=== PATIENT | male | born 1935 | race Caucasian/White ===

== ENCOUNTER → 2016-08-16 | Outpatient (CLI) | payer MEDICARE, BC ==
[2016-08-16 08:08] LABS: Blood Urea Nitrogen 22 mg/dL (9-20); Non-African American GFR(MDRD) >60 (>60 ml/min/1.73 sqM)
--- NOTE | 2016-08-16 10:51 | CT ---
EXAMINATION TYPE: CT ChestAbdPelvis w con DATE OF EXAM: 08/16/2016 9:28 AM INDICATION: Follow up to renal CA COMPARISON: 06/14/2016 CT chest abdomen pelvis CT DLP: 2409 mGycm CONTRAST: Performed with Oral Contrast and with IV Contrast, patient injected with 100 mL of Omnipaque 300. TECHNIQUE: Axial images at 5 mm thick sections. Reconstructed images in the coronal plane. Delayed images through the kidneys. FINDINGS: CT CHEST: Portion of the thyroid visualized is normal. No suspicious lung nodules or focal infiltrates are present. Emphysematous changes are present within the lung apices, present previously. No enlarged mediastinal or hilar adenopathy is evident. The ascending aorta diameter at the level of the main pulmonary artery is 3.4 cm. The main pulmonary artery diameter at the bifurcation is 2.7 cm. Some coronary artery calcification is likely present. CT ABDOMEN: Liver: There are several hypodensities within the liver. These may be small hepatic cysts. This would include a right lobe of 0.9 subcortical cyst. Series 3 image 58. A medial right lobe liver lesion 1 measuring 1.2 cm. Series 3 image 57. Right lobe liver lesions near the dome of the diaphragm measurin g 0.8-0.6 cm. Series 3 image 52. Additional punctate hypodensities are present. Findings appear to be present previously and are more apparent on these postcontrast images. Spleen: Normal Pancreas: Normal Adrenal glands: The adrenal glands are normal. Gallbladder: Normal Kidneys: No masses are evident. No hydronephrosis is present. Multiple cysts are present on the amy ateral kidneys. This includes a 4.4 cm cyst on the posterior lateral left mid kidney measuring -11 Ho unsfield units. Nonobstructing 0.5 cm calcification is within the dilated calyx adjacent. A large 2.1 x 1.4 cm calcifications in the left renal pelvis. Additional 0.6 and 0.5 cm inferior left renal ston es are present. There is a intermediate appearing signal within the inferior anterior medial left renal cyst. This me asures only 17 Hounsfield units however. This measures 8 cm in size was present previously. This appe ars more hypodense on the current exam. A right renal cyst at the posterior medial right kidney measu res 4.7 cm and -9 Hounsfield units. A superior pole renal lesion measures 3.7 cm in -12 Hounsfield un its. Delayed images were obtained through the kidneys. Aorta: Vascular calcification is within the aorta. Inferior vena cava: Normal. CT PELVIS: Diverticulosis is within the sigmoid colon. Fecal debris is at the rectum. Loops of bowel distended w ith oral contrast appear unremarkable. There are some loops of bowel lacking oral contrast limiting t heir evaluation. Appendix: Normal as visualized. Urinary bladder: Normal. Genitourinary structures: Prostate appears normal, calcification is present. Osseous structures: There is a right hip pin. Degenerative facets are within the lumbar spine. There is a lytic area within the L3 vertebral body measuring 2.6 cm. This was present previously. There may be a lytic area within the T11 vertebral body posteriorly. This was present previously. IMPRESSIONS: 1. Lesion on the inferior anterior left kidney appears more hypodense and somewhat more fluidlike austin n the previous solid appearance. However, the structure size is similar to previous. 2. Possible lytic areas within the lumbar spine and lower thoracic spine. 3. Renal cysts and suspected hepatic cysts. 4. Left renal stones with mild left hydronephrosis
--- NOTE | 2016-08-16 13:13 | NM ---
EXAMINATION TYPE: NM bone scan whole body DATE OF EXAM: 08/16/2016 12:22 PM COMPARISON: 06/14/1960 HISTORY: Renal cell carcinoma Delayed whole-body scanning was performed following the injection of 26.7 mCi Tc 99m MDP. Images acq uired 3 hours post injection. FINDINGS: New areas of increased uptake: Left acetabular region which may be degenerative in nature although m etastatic disease is not excluded. The left first rib demonstrates focal increased radiotracer activi ty. Improved areas of increased uptake: Previously noted areas of increased uptake about the right femur have not improved significantly with only mild increased uptake seen at the right intertrochanteric r egion and right mid femur. There is also resolution of increased uptake at the L3 vertebral segment. Stable areas of increased uptake: Stable increased uptake and degenerative type uptake is seen about the shoulders, sternoclavicular joints, mid thoracic spine, knees and ankles. Progressive areas of increased uptake: None Progressive hydronephrosis left kidney. IMPRESSION: 1. New areas of increased uptake involving the left acetabular region could be degenerative in nature however metastatic disease is not excluded. Radiographic correlation recommended. 2. New area of focal increased uptake involving the left first rib. Radiographic correlation advised. 3. Continued and progressive-appearing hydronephrosis left kidney.
== END | disposition home or self-care (01) ==
LOC: RADCTMAIN 07:32
PROVIDERS: ATTEND Internal Medicine Hematology & Oncology
DX: C64.9 Malignant neoplasm of unspecified kidney, except renal pelvis (principal); N28.1 Cyst of kidney, acquired; N13.2 Hydronephrosis with renal and ureteral calculous obstruction
CPT/HCPCS: 82565; 84520; 71260; 74177; 36415; 78306; A9503; Q9967

== ENCOUNTER → 2016-10-17 | Outpatient (CLI) | payer MEDICARE, BC ==
[2016-10-17 12:32] LABS: Blood Urea Nitrogen 20 mg/dL (9-20); Non-African American GFR(MDRD) >60 (>60 ml/min/1.73 sqM)
--- NOTE | 2016-10-17 14:48 | CT ---
EXAMINATION TYPE: CT ChestAbdPelvis w con DATE OF EXAM: 10/17/2016 2:22 PM COMPARISON: NONE HISTORY: Follow up renal cancer CT DLP: 2269 mGycm Automated exposure control for dose reduction was used. CONTRAST: CT scan of the chest, abdomen and pelvis is performed with Oral Contrast and with IV Contrast, patien t injected with 100 mL of Omnipaque 300. FINDINGS: CT CHEST: Portion of the thyroid visualized is normal. Emphysematous changes are present within the l colton apices, present previously. No enlarged mediastinal or hilar adenopathy is evident. The ascending aorta diameter at the level of the main pulmonary artery is 3.4 cm. The main pulmonary artery diamet er at the bifurcation is 2.7 cm. Some coronary artery calcification is likely present. There is a 5 m m nodule in the right upper lobe which is retrospectively stable. Vague density axial image 29 likely is postinflammatory measuring 3 mm. Additional area of nodularity seen within the right middle lobe axial image [address] ABDOMEN: Liver: There are several hypodensities within the liver. These may be small hepatic cysts. This would include a right lobe of 0.9 subcortical cyst. . A medial right lobe liver lesion 1 measuring 1.2 cm. . Right lobe liver lesions near the dome of the diaphragm measuring 0.8-0.6 cm. . Additional punctat e hypodensities are present. Findings appear to be present previously and are more apparent on these postcontrast images. Spleen: Normal Pancreas: Normal Adrenal glands: The adrenal glands are normal. Gallbladder: Normal Kidneys: No hydronephrosis is present. Multiple cysts are present on the bilateral kidneys. This incl udes a 4.4 cm cyst on the posterior lateral left mid kidney measuring - 11 Hounsfield units. Nonobstr ucting 0.5 cm calcification is within the dilated calyx adjacent. A large 2.1 x 1.4 cm calcifications in the left renal pelvis. Additional 0.6 and 0.5 cm inferior left renal stones are present. There is a intermediate appearing dense within the inferior anterior medial left renal lesion. Appears to con tain internal septations nodular thickening. There is mural nodularity and septal thickening suggesti ve of a complicated renal mass. Additional simple appearing bilateral renal cysts noted. Again appear s stable in size measuring approximately 8.6 x 7.9 cm. Aorta: Vascular calcification is within the aorta. Inferior vena cava: Normal. CT PELVIS: Diverticulosis is within the sigmoid colon. Fecal debris is at the rectum. Loops of bowel distended with oral contrast appear unremarkable. There is wall thickening involving the sigmoid colo n which may been the basis of chronic diverticulosis but should be correlated clinically and was perf ormed to direct visualization. Appendix: Normal as visualized. Urinary bladder: Normal. Genitourinary structures: Prostate appears normal, calcification is present. Other: Small fluid collection appears to be likely postsurgical adjacent to the right femoral region and stable from previous exam. Osseous structures: There is a right hip pin. Degenerative facets are within the lumbar spine. There is a lytic area within the L3 vertebral body measuring 2.6 cm. This was present previously. There may be a lytic area within the T11 vertebral body posteriorly. This was present previously. There is a l ytic area involving the posterior elements of L5. Lucent lesion involving L1 and T9 retrospectively s table. There is a remote fracture of the posterior margin left third rib correlates with previous bone scan abnormality.. IMPRESSIONS: 1. Lesion involving the inferior anterior left kidney appears complicated with areas measuring Hounsf ield unit of 40 units. Internal septations noted. Classify the lesion as a Bosniak 4 lesion. Appears to correspond to the suspicious lesion seen on the CAT scan of 04/20/2016. Lesion does appear to be st able in size from the previous exam. 2. Stable lytic lesion suggestive of metastases to the skeletal system. 3. Wall thickening sigmoid colon likely in the basis of chronic diverticulosis correlate clinically i f necessary with direct visualization. 4. There are three less than 5 mm pulmonary nodules which were likely present on the previous exam . They are too small to characterize but overall appear to be fairly stable from the previous. Contin ued follow-up exam recommended .
== END | disposition home or self-care (01) ==
LOC: RADCTMAIN 11:59
PROVIDERS: ATTEND Internal Medicine Hematology & Oncology
DX: Z03.89 Encounter for observation for other suspected diseases and conditions ruled out (principal); C64.2 Malignant neoplasm of left kidney, except renal pelvis; C79.51 Secondary malignant neoplasm of bone
CPT/HCPCS: 82565; 84520; 71260; 74177; 36415; Q9967

== ENCOUNTER → 2016-10-19 | Outpatient (CLI) | payer MEDICARE, BC ==
--- NOTE | 2016-10-19 15:36 | NM ---
EXAMINATION TYPE: NM bone scan whole body DATE OF EXAM: 10/19/2016 3:16 PM COMPARISON: Prior CT scan September, prior bone scan 16 August 2016 and prior bone scan HISTORY: Renal cell carcinoma Delayed whole-body scanning was performed following the injection of 25.1 mCi Tc 99m MDP. Images acq uired 3 hours post injection. FINDINGS: The focus of increased uptake in the posterior left third rib is again noted. Hydronephrosis of the l eft kidney causes increased accumulation of the radiopharmaceutical, there is an obstructing calculus within the left kidney as noted on CT. Uptake within the left foot, wrists, shoulders, and spine sara w a similar appearance, patient shows post right hip arthroplasty change with some mild increased sig nal proximally as on prior. Uptake in the region of the proximal right femur medially is again seen, this thought likely to be due to metastasis, the lytic L3 lesion does not show corresponding uptake o n the bone scan. Uptake in the acetabular roof on the left compatible with metastatic IMPRESSION: Similar findings to prior exam. Metastatic disease is similar. Hydronephrosis.
== END | disposition home or self-care (01) ==
LOC: RADNMMAIN 10:57
PROVIDERS: ATTEND Internal Medicine Hematology & Oncology
DX: C64.2 Malignant neoplasm of left kidney, except renal pelvis (principal); N13.30 Unspecified hydronephrosis
CPT/HCPCS: 78306; A9503

== ENCOUNTER → 2016-12-19 | Outpatient (CLI) | payer MEDICARE, BC ==
--- NOTE | 2016-12-19 11:11 | US ---
EXAMINATION TYPE: US venous doppler duplex LE RT DATE OF EXAM: 12/19/2016 10:56 AM COMPARISON: NONE CLINICAL HISTORY: R22.41 SWELLING RT LOWER LIMB. right leg pain and swelling, no prev dvt SIDE PERFORMED: right TECHNIQUE: The lower extremity deep venous system is examined utilizing real time linear array sonog aura with graded compression, doppler sonography and color-flow sonography. VESSELS IMAGED: External Iliac Vein (EIV) Common Femoral Vein Deep Femoral Vein Greater Saphenous Vein * Femoral Vein Popliteal Vein Proximal Calf Veins Right Leg: neg for RLE dvt. Atherosclerotic change of the arterials visualized system. Results called to Rosalinda in the office at the time of the exam. IMPRESSION: 1. No diagnostic evidence of DVT as visualized.
== END | disposition home or self-care (01) ==
LOC: RADUSWWP 10:34
PROVIDERS: ATTEND Internal Medicine Hematology & Oncology
DX: R22.41 Localized swelling, mass and lump, right lower limb (principal)

== ENCOUNTER → 2017-01-23 | Outpatient (CLI) | payer MEDICARE, BC ==
[2017-01-23 09:42] LABS: Blood Urea Nitrogen 17 mg/dL (9-20); Non-African American GFR(MDRD) >60 (>60 ml/min/1.73 sqM)
--- NOTE | 2017-01-23 12:21 | CT ---
EXAMINATION TYPE: CT ChestAbdPelvis w con DATE OF EXAM: 01/23/2017 COMPARISON: 10/17/2016 and 06/14/2016. HISTORY: 81-year-old male follow-up renal cell carcinoma TECHNIQUE: Contiguous axial scanning of the chest, abdomen, and pelvis performed with IV Contrast, pa tient injected with 100 mL of Omnipaque 300. Delayed images through the kidneys were obtained. Fernandez l/sagittal reconstructions performed. CT DLP: 1250.6 mGycm Automated exposure control for dose reduction was used. FINDINGS: CHEST: The heart is normal size without pericardial effusion. Coronary vessel calcifications are present in remarkable for coronary artery disease. Mild atherosclerotic arch calcifications with conventional arch vessel branching anatomy. No thoracic lymphadenopathy. Scattered less than 5 mm pulmonary nodules on both sides, many of which appear to be stable from 10/17. However, a few may be minimally larger, for example within the right upper lobe axial image 25 measur ing 7 mm versus 6 mm on 10/17/2016. 4 mm and smaller nodular densities in the right lower lobe are sli ghtly more pronounced as are tiny nodular densities in the left lower lobe, especially when compared to 06/14/2016. No consolidation or pleural effusion. ABDOMEN: Tiny hiatal hernia. Hypodense lesions within the liver are unchanged, measuring up to 1.4 cm, probable cysts. Gallbladder, adrenal glands, spleen, and pancreas appear within normal limits. Left-sided renal calculi measuring up to 2.4 cm in the left renal pelvis with additional nonobstructi ve calculi measuring up to 1.1 cm. There are bilateral renal cysts, measuring up to 4.4 cm on the right. There is a complex solid cystic lesion redemonstrated along the anterior aspect of the left renal lower pole measuring 8.2 x 7.1 cm versus 7.8 x 6.6 cm on 10/17/2016 No dilated small bowel, free fluid, or free air. No mesenteric or retroperitoneal lymphadenopathy see n. Normal appendix. Mild stool burden with sigmoid diverticulosis and no pericolonic laboratory change. Pelvis: Bladder is urine distended. No abnormal fluid collection in the pelvis or pelvic lymphadenopathy. Bones: Postsurgical changes of antegrade nailing of the proximal right femur with hip screw fixation. Degen erative changes throughout the lumbar spine. Additional endplate spondylosis throughout the mid to l ower thoracic spine chronic ununited fracture deformity of the left posterior third rib. Stable lytic lesions involving left L5 lamina, L3 and T11 vertebral bodies. IMPRESSION: 1. COMPLEX SOLID CYSTIC LESION LOWER POLE LEFT KIDNEY MINIMALLY LARGER NOW MEASURING 8.2 X 7.1 CM KARON VISHAL 7.8 X 6.6 CM ON 10/17/2016. 2. NUMEROUS LESS THAN 5 MM BILATERAL PULMONARY NODULES. Many of these are tiny measuring 3 mm but saw e are slightly more pronounced or new especially in the left greater than right lower lobes. 3. 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 4. COPD with [id number] emphysema, left-sided nephrolithiasis, and sigmoid diverticulosis.
--- NOTE | 2017-01-23 15:57 | NM ---
EXAMINATION TYPE: NM bone scan whole body DATE OF EXAM: 01/23/2017 COMPARISON: NONE HISTORY: Renal cell carcinoma Delayed whole-body scanning was performed following the injection of 27.5 mCi Tc 99m MDP. Images acq uired 3.5 hours post injection. FINDINGS: Persistent but improved hydronephrosis left kidney. Stable metastatic disease to the right femur. Postoperative changes of the right femur as well. Increased uptake about the left acetabular roof is unchanged increased uptake involving the left firs t rib also unchanged as well as left rib anteriorly. Again noted is uptake involving L3-L4 and L5 whi ch appears to have increased. There is also pedicle uptake bilaterally at T9 and T11. Increased uptake posterior right rib #2. Degenerative uptake left mid foot. IMPRESSION: 1. Progressive uptake involving the thoracic and lumbar spine with the remainder examination remains essentially stable.
== END | disposition home or self-care (01) ==
LOC: RADCTMAIN 08:57
PROVIDERS: ATTEND Internal Medicine Hematology & Oncology
DX: C79.51 Secondary malignant neoplasm of bone (principal); C64.2 Malignant neoplasm of left kidney, except renal pelvis; K57.30 Diverticulosis of large intestine without perforation or abscess without bleeding; J43.9 Emphysema, unspecified; N20.0 Calculus of kidney; R91.8 Other nonspecific abnormal finding of lung field
CPT/HCPCS: 82565; 84520; 71260; 74177; 36415; 78306; A9503; Q9967

== ENCOUNTER 2017-01-24 13:33 | Emergency (ER) | payer MEDICARE, BC ==
[2017-01-24] MEDS ORDERED: LIDOCAINE/EPINEPHR/TETRACAINE 5 ML BOTTLE TOPICAL ONE (13:48)
--- NOTE | 2017-01-24 13:52 | ED ---
Fall HPI - General Chief Complaint: Fall Stated Complaint: fall/facial injuries Time Seen by Provider: 01/24/17 13:40 Source: patient, family, RN notes reviewed Mode of arrival: wheelchair - History of Present Illness Initial Comments: Patient is a 81-year-old male presents emergency room for fall injury. Patient states about an hour ago he tripped and fell forward landing on his face on the cement. Patient states he has an abrasion over his nose, upper lip and chin. Patient states that he chipped his right front tooth. Patient denies loss of consciousness. Patient also states he landed on bilateral knees during the incident. Patient states he has abrasions on bilateral knees. Patient denies taking blood thinners. Patient states he only takes a baby aspirin per day. Patient denies headache. Patient denies dizziness. Patient denies neck pain. Patient denies paresthesias. Patient denies changes in vision. Patient denies nausea or vomiting. Patient states that he is having nasal pain. Patient states that his nose did bleed for about 10 minutes after the incident. Patient states she is up-to-date on his tetanus vaccine. Patient also states she has a history of renal cancer. Patient states he had metastases to his right femur. Patient states in April 2016 he had a metal court placed in his femur. Patient states he does have chronic right leg pain from the surgery. Patient states when he went to stand up after the incident he noticed increased pain in his right femur. Patient states he only has pain when he bears weight on his right leg. Patient denies any pain on palpating over his leg. - Related Data Home Medications Medication Instructions Recorded Confirmed Aspirin [Adult Low Dose Aspirin EC] 81 mg PO HS 05/03/16 01/24/17 Digoxin [Lanoxin] 125 mcg PO DAILY 05/03/16 01/24/17 Glimepiride [Amaryl] 1 mg PO AC-BRKFST PRN 05/03/16 01/24/17 Metoprolol Tartrate [Lopressor] 25 mg PO BID 05/03/16 01/24/17 sitaGLIPtin PHOS/metFORMIN HCL 1 tab PO BID 05/03/16 01/24/17 [Janumet 50-500 mg Tablet] Calcium Carbonate/Vitamin D3 1 tab PO DAILY 01/24/17 01/24/17 [Calcium 600-Vit D3 400 Caplet] Enalapril [Vasotec] 10 mg PO DAILY 01/24/17 01/24/17 Famotidine [Pepcid] 20 mg PO BID PRN 01/24/17 01/24/17 HYDROcodone/APAP 5-325MG [Skytop 1 tab PO BID 01/24/17 01/24/17 5-325] Naproxen Sodium [Aleve] 220 mg PO Q12HR PRN 01/24/17 01/24/17 Prochlorperazine [Compazine] 10 mg PO Q6H PRN 01/24/17 01/24/17 Triamterene-Hctz 75-50Mg [Maxzide 0.5 tab PO DAILY 01/24/17 01/24/17 75-50] Votrient 400 mg PO DAILY 01/24/17 01/24/17 X Geva 2 ml INJ Q30D 01/24/17 01/24/17 fentaNYL 25MCG/HR PATCH [Duragesic 1 patch TRANSDERM Q72H 01/24/17 01/24/17 25MCG/HR] Allergies Allergy/AdvReac Type Severity Reaction Status Date / Time No Known Allergies Allergy Verified 01/24/17 14:09 Review of Systems ROS Statement: Those systems with pertinent positive or pertinent negative responses have been documented in the HPI. ROS Other: All systems not noted in ROS Statement are negative. Past Medical History Past Medical History: Atrial Fibrillation, Diabetes Mellitus, Hypertension Additional Past Medical History / Comment(s): Kidney mass, lesion of femur History of Any Multi-Drug Resistant Organisms: None Reported Past Surgical History: Hernia Repair, Orthopedic Surgery Additional Past Surgical History / Comment(s): bronch to remove aspirated foreign object, abdominal hernia, umbilical hernia, fatty tumor removed, repair of tib/fib, Craniotomy X2 for Subdural hematoma. 04/2016 work up for removal of kidney suspious for CA pending biopsy of femur lesion. Past Anesthesia/Blood Transfusion Reactions: No Reported Reaction Past Psychological History: No Psychological Hx Reported Smoking Status: Former smoker Past Alcohol Use History: None Reported Past Drug Use History: None Reported - Past Family History Father Family Medical History: No Reported History General Exam - General Exam Comments Initial Comments: Sitting in exam room, no acute distress. Limitations: physical limitation General appearance: alert Expanded Head exam: Present: abrasion (Abrasion over her nasal bridge with 1cm laceration , upper lip and chin), other (Tenderness on palpating over nasal bridge) Eye exam: Present: normal appearance, PERRL, EOMI Pupils: Present: normal accommodation Expanded Teeth exam: Present: fractured tooth # (Small chip of tooth #8) Neck exam: Present: normal inspection Respiratory exam: Present: normal lung sounds bilaterally. Absent: respiratory distress Cardiovascular Exam: Present: regular rate, normal rhythm, normal heart sounds Extremities exam: Present: normal inspection, full ROM. Absent: tenderness (No tenderness on palpation) Back exam: Present: normal inspection Neurological exam: Present: alert, oriented X3, CN II-XII intact Psychiatric exam: Present: normal affect, normal mood Skin exam: Present: warm, dry, normal color, abrasion (Superficial abrasion over bilateral knees). Absent: rash Course Vital Signs 01/24/17 01/24/17 01/24/17 13:35 14:30 15:30 Temperature 98.1 F 98.0 F Pulse Rate 82 87 80 Respiratory 20 20 20 Rate Blood Pressure 146/80 135/65 137/68 O2 Sat by Pulse 100 98 99 Oximetry 01/24/17 01/24/17 16:30 17:08 Temperature 97.5 F L Pulse Rate 74 74 Respiratory 18 18 Rate Blood Pressure 111/59 110/68 O2 Sat by Pulse 99 98 Oximetry Procedures - Laceration Laceration #1 Consent Obtained: verbal consent Indication: laceration Site: other (nasal bridge) Size (cm): 1 Depth: simple, single layer Anesthetic Used: lidocaine 1% Anesthesia Technique: local infiltration Amount (mls): 1 Pre-repair: wound explored, irrigated extensively Type of Sutures: nylon Size of Sutures: 6-0 Number of Sutures: 1 Technique: simple, interrupted Patient Tolerated Procedure: well, no complications Laceration #2 Consent Obtained: verbal consent Indication: laceration Site: other (upper lip) Size (cm): 2 Description: avulsion, irregular Anesthetic Used: lidocaine 1% Anesthesia Technique: local infiltration Amount (mls): 2 Pre-repair: wound explored, irrigated extensively Type of Sutures: vicryl Size of Sutures: 5-0 Number of Sutures: 2 Technique: simple, interrupted Patient Tolerated Procedure: well, no complications Medical Decision Making - Medical Decision Making Patient is a 81-year-old male presents emergency room for evaluation of fall injury. Patient sustained abrasion to nasal bridge, upper lip and chin. There is a small laceration of her nasal bridge that was repaired with one suture. Patient does have a deep abrasion/laceration over upper lip/frenulum area. Area was prepared with 2 absorbable sutures. Brain/C-spine CT negative for any acute findings. Facial CT negative for any acute fractures. Right pelvis/ femur x-ray significant for acute to subacute nondisplaced periprosthetic fracture of the subtrochanteric region (per radiology). Patient states his orthopedic oncology surgeon is Dr. Allan from [facility]. Dr. Allan was contacted and case was discussed with him. Dr. Allan did take a look at the x- rays and stated the fractures looked old to him and he can weight-bear as tolerated without restriction and follow up as scheduled if he feels better or sooner if need be. Plan discussed with patient and family. Patient family state they understand everything that was discussed with them. Return parameters discussed. Case discussed Dr. Holland. - Radiology Data Radiology results: report reviewed, image reviewed Disposition Clinical Impression: Facial abrasion, Facial laceration, Right leg pain, Fall Disposition: HOME SELF-CARE Condition: Good Instructions: Laceration (ED), Fall Prevention for Older Adults (ED), Abrasion (ED), Care For Your Absorbable Stitches (ED), Facial Laceration (ED) Additional Instructions: Take Tylenol or Motrin as needed for pain. Clean abrasion areas with antibacterial soap and water daily. Please return or follow up with primary care provider in 3-5 days for suture removal. Please follow-up with orthopedic oncologist for reevaluation of right leg pain if symptoms are not improving. If any new symptom arises or symptoms worsen, return to ER as soon as possible. Referrals: Jaden Silva MD [Primary Care Provider] - 1-2 days Time of Disposition: 16:55
--- NOTE | 2017-01-24 14:59 | CT ---
EXAMINATION TYPE: CT facial bones wo con DATE OF EXAM: 01/24/2017 COMPARISON: NONE HISTORY: Fall/Facial injury CT DLP: 618.1 mGycm Automated exposure control for dose reduction was used. TECHNIQUE: CT scan of the sinuses is performed without contrast, axial images are obtained, coronal r eformatted images are also reviewed. FINDINGS: There is atrophic change present within the cranium. There is mucoperiosteal thickening involving both maxillary sinuses and the anterior ethmoid sinuses bilaterally. The orbits are unremarkable. There is been a previous left frontal craniotomy. The zygomatic arches are intact. The pterygoid plates are intact. No nasal fracture is seen. The wall s of the orbits and maxillary sinuses are intact. No nasal fracture is seen. The mandible is not fully assessed in the coronal projection.. The axial images appear normal IMPRESSION: 1. NO ACUTE FACIAL FRACTURE. 2. SINUS MUCOSAL DISEASE. 3. CEREBRAL ATROPHY.
--- NOTE | 2017-01-24 15:04 | CT ---
EXAMINATION TYPE: CT brain alma deliaine wo con DATE OF EXAM: 01/24/2017 COMPARISON: CT brain dated 05/24/2012 HISTORY: Fall, Facial injury CT DLP: 1510.2 mGycm Automated exposure control for dose reduction was used. TECHNIQUE: CT scan of the head and cervical spine are performed without contrast. FINDINGS: There is no acute intracranial hemorrhage, mass effect, or midline shift identified. The ventricles and sulci are stable, asymmetric appearance of frontal horn on the right is stable. The globes are intact and the visualized sinuses are clear. Post craniotomy and chronic subdural fluid co llections again noted. Left frontal low attenuation appears chronic. Mucosal disease present in maxil jesenia sinuses. Cervical spine is visualized in its entirety from C1 through upper thoracic levels and demonstrates s atisfactory alignment without evidence of acute fracture or dislocation. Prevertebral soft tissue ap pears within normal limits. Multilevel foraminal encroachment, spondylosis and loss of disk height. Retrolisthesis C3-C4 is grade one. The C1-C2 articulation is unremarkable. 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 IMPRESSION: 1. There is no acute fracture or dislocation evident in the cervical spine. 2. No acute intracranial hemorrhage, mass effect, or midline shift is seen.
--- NOTE | 2017-01-24 15:53 | XR ---
EXAMINATION TYPE: AP view pelvis. 2 views right femur. DATE OF EXAM: 01/24/2017 COMPARISON: CT 01/23/2017 HISTORY: 81-year-old male followed cement with right femur pain. FINDINGS: Pelvis: Residual oral contrast seen throughout the colon. There is a displaced fragment of the right greater trochanter status post right-sided antegrade intramedullary nailing of the femur and hip screw fixati on. There is mixed sclerosis and lucency within the right lesser trochanter likely sequela of prior o sseous metastatic disease. In addition, there is a linear lucency extending horizontally across the subtrochanteric region. Right femur: There is also cortical lucency along the lateral and anterior aspect of the proximal to middle third femoral shaft corresponding to prior osseous metastatic disease. Degenerative changes at the knee. IMPRESSION: 1. Suspect prior prophylactic antegrade intramedullary nailing of the right femur with hip screw fixa tion. Findings suggest an acute to subacute, nondisplaced periprosthetic fracture of the subtrochante will region. 2. Previous osseous metastatic disease involving the lesser trochanter and the anterolateral proximal to mid femoral shaft. Possibly also prior osseous metastatic involvement of the greater trochanter.
[2017-01-24 16:44] VITALS: PULSE 74; RESP 18
[2017-01-24 17:10] VITALS: BP 110/68; TEMP 97.5
== END 2017-01-24 17:08 | disposition home or self-care (01) ==
LOC: EC 13:33
DX: S01.511A Laceration without foreign body of lip, initial encounter (principal); S01.21XA Laceration without foreign body of nose, initial encounter; S01.81XA Laceration without foreign body of other part of head, initial encounter; S02.5XXA Fracture of tooth (traumatic), initial encounter for closed fracture; M79.661 Pain in right lower leg; S80.211A Abrasion, right knee, initial encounter; S80.212A Abrasion, left knee, initial encounter; I10 Essential (primary) hypertension; E11.9 Type 2 diabetes mellitus without complications; I48.91 Unspecified atrial fibrillation; Z87.891 Personal history of nicotine dependence; Z79.82 Long term (current) use of aspirin; Z79.84 Long term (current) use of oral hypoglycemic drugs; Z79.899 Other long term (current) drug therapy; W01.198A Fall on same level from slipping, tripping and stumbling with subsequent striking against other object, initial encounter
CPT/HCPCS: 12013; 70450; 70486; 72125; 72170; 99284

== ENCOUNTER → 2017-03-24 | Outpatient (CLI) | payer MEDICARE, BC ==
--- NOTE | 2017-03-24 16:39 | US ---
EXAMINATION TYPE: US venous doppler duplex LE RT DATE OF EXAM: 03/24/2017 4:31 PM COMPARISON: NONE CLINICAL HISTORY: R22.41 Swelling. SIDE PERFORMED: Right TECHNIQUE: The lower extremity deep venous system is examined utilizing real time linear array sonog aura with graded compression, doppler sonography and color-flow sonography. VESSELS IMAGED: External Iliac Vein (EIV) Common Femoral Vein Deep Femoral Vein Greater Saphenous Vein * Femoral Vein Popliteal Vein Proximal Calf Veins (* superficial vessels) Grayscale, color doppler, spectral doppler imaging performed of the deep veins of the lower extremity . There is normal flow, compressibility, vascular waveforms. Right Leg: Negative for DVT IMPRESSION: No evidence for DVT at this time.
== END ==
LOC: RADUSWWP 15:57
PROVIDERS: ATTEND Internal Medicine Hematology & Oncology
DX: R22.41 Localized swelling, mass and lump, right lower limb (principal)

== ENCOUNTER → 2017-04-10 | Outpatient (CLI) | payer MEDICARE, BC ==
[2017-04-10 10:13] LABS: Blood Urea Nitrogen 16 mg/dL (9-20); Non-African American GFR(MDRD) >60 (>60 ml/min/1.73 sqM)
--- NOTE | 2017-04-10 12:10 | CT ---
EXAMINATION TYPE: CT ChestAbdPelvis w con DATE OF EXAM: 04/10/2017 COMPARISON: Prior chest abdomen pelvis CT 01/23/2017 HISTORY: renal cell ca f/u. CT DLP: 1626.40 mGycm Automated exposure control for dose reduction was used. CONTRAST: CT scan of the chest, abdomen and pelvis is performed with Oral Contrast and with IV Contrast, patien t injected with 100 mL of Omnipaque 300. FINDINGS: LUNGS: Emphysematous changes are present within the lungs. 2 numerous to count subcentimeter noncalci fied pulmonary nodules are also present. Nodules have increased in size and number. MEDIASTINUM: There are coronary artery calcifications present. AORTA: No significant abnormality is seen. OTHER: No additional significant abnormality is seen. LIVER/GB: Stable. PANCREAS: No significant abnormality is seen. SPLEEN: No significant abnormality is seen. ADRENALS: No significant abnormality is seen. KIDNEYS: Left renal mass has grown slightly in the interval, there is mass effect on the anterior asp ect of the kidney as on previous exam, renal stone again noted in the pelvis as well as additional sm aller calculi within the left collecting system. Tumor thrombus suspected within the left renal vein. REPRODUCTIVE ORGANS: No gross abnormality seen. BOWEL: No significant abnormality is seen. FREE AIR: No Free Air visible. ASCITES: None seen. RETROPERITONEAL ADENOPATHY: No retroperitoneal adenopathy is seen. LYMPH NODES: No greater than 1 cm abdominal or pelvic lymph nodes are appreciated. URINARY BLADDER: No significant abnormality is seen. PELVIC ADENOPATHY: None visualized. OSSEOUS STRUCTURES: Multiple lytic lesions are present within the spine as on prior exam.. IMPRESSION: There is an increase in size and number of soft tissue nodules within the lungs compatibl e with metastatic disease. Additional findings above.
--- NOTE | 2017-04-10 14:22 | NM ---
EXAMINATION TYPE: NM bone scan whole body DATE OF EXAM: 04/10/2017 COMPARISON: CT chest, abdomen, and pelvis dated 04/10/2017 and nuclear medicine total-body bone scan d ated 01/23/2017. HISTORY: Renal cell carcinoma. Delayed whole-body scanning was performed following the injection of 26.7 mCi Tc 99m MDP. Images acq uired 3 hours post injection. FINDINGS: Focal radiotracer uptake is seen within the T9 vertebral body, posterior T8 left rib, T11 v ertebral body, centrally within the T12 vertebral body, L3 near the spinous process, L4, and L5 near the spinous process. Degree of uptake has increased from the prior exam. Additionally left first rib focal uptake and posterior rib 2 on the right focal uptake are redemonstrated and stable. Intense rad iotracer uptake within the left kidney relates to persistent hydronephrosis. Right femoral proximal diaphyseal and mid diaphyseal metastatic foci are seen as well as a punctate f ocus in the distal diaphysis. Left acetabular rim and roof increased uptake. Right greater trochanter focal uptake is also suspicious. Uptake is noted within the appendicular skeleton in the acromioclavicular joints, glenohumeral joints , within the carpals and within the tarsals (left greater than right). Findings most likely relate to degenerative arthropathy. IMPRESSION: Progressive and increased uptake within multiple known metastatic sites including the rig ht femur, left acetabular roof, thoracic spine, lumbar spine, and upper ribs. No new metastatic foci. Persistent left hydronephrosis.
== END | disposition home or self-care (01) ==
LOC: RADNMMAIN 09:20
PROVIDERS: ATTEND Internal Medicine Hematology & Oncology
DX: C79.52 Secondary malignant neoplasm of bone marrow (principal); C64.2 Malignant neoplasm of left kidney, except renal pelvis; N13.30 Unspecified hydronephrosis; M79.89 Other specified soft tissue disorders
CPT/HCPCS: 82565; 84520; 71260; 74177; 78306; 36415; A9503; Q9967

== ENCOUNTER → 2017-06-26 | Outpatient (CLI) | payer MEDICARE, BC ==
[2017-06-26 10:33] LABS: Blood Urea Nitrogen 22 mg/dL (9-20); Non-African American GFR(MDRD) >60 (>60 ml/min/1.73 sqM)
--- NOTE | 2017-06-26 17:50 | NM ---
EXAMINATION TYPE: NM bone scan whole body DATE OF EXAM: 06/26/2017 COMPARISON: 04/10/2017 HISTORY: 81 year-old male history of renal cell carcinoma Technique: Delayed whole-body scanning was performed following the injection of 26.2 mCi Tc 99m MDP. Images acquired 3 hours post injection. FINDINGS: Redemonstrated scattered osseous metastatic disease, particularly involving the proximal right femur, scant foci within the right femoral shaft, left acetabular roof, upper left hemithorax, and scattere d throughout the thoracic and lumbar spine. Foci within the mid to lower thoracic spine as well as th e mid lumbar spine are increased. New foci of abnormal uptake at both shoulders and along the left si de of the cervical spine. Persistent intense tracer activity in the left renal collecting system. IMPRESSION: 1. Slight interval progression in osseous metastatic disease involving the left side of the cervical spine, both shoulders, new foci in the mid to lower thoracic spine and mid lumbar spine. 2. Previous lesions redemonstrated in the upper left hemithorax, right femur, and left acetabular maria elena f. 3. Persistent left-sided hydronephrosis.
--- NOTE | 2017-06-26 18:11 | CT ---
EXAMINATION TYPE: CT ChestAbdPelvis w con DATE OF EXAM: 06/26/2017 INDICATION: Renal cancer, left COMPARISON: 04/10/2017. CT DLP: 2307 mGycm CONTRAST: Performed with Oral Contrast and with IV Contrast, patient injected with 100 ml mL of Omnipaque 300. TECHNIQUE: Axial images at 5 mm thick sections. Reconstructed images in the coronal plane. Delayed images through the kidneys. FINDINGS: CT CHEST: Portion of the thyroid visualized is normal. There are multiple bilateral small nodules. These have increased in size and distribution suspicious for metastatic disease. There is a larger irregular shaped density within the right upper lobe measur ing approximately 1.0 cm in thickness. Series 4 image 22. Emphysematous changes are present bilaterally. There is a 1.2 cm left suprahilar lymph node. There is a 2.4 cm right suprahilar lymph node. Note is made of coronary artery calcification. The ascending aorta diameter at the level of the main pulmonary artery is 3.4 cm. The main pulmonary artery diameter at the bifurcation is 2.[address] ABDOMEN: Liver: There are multiple scattered small hypodensities within the liver. These are not all classify as simple cysts. Small metastatic lesions are not excluded. There are some areas which are more suspi cious for metastasis including ring-enhancing lesions posterior right lobe liver measuring 1.3 cm. Se erick 3 image 59 Spleen: Normal Pancreas: Normal Adrenal glands: The adrenal glands are normal. Gallbladder: Normal Kidneys: There is an 8.3 x 7.4 cm mass with peripheral enhancement in the anterior right mid kidney. Some hydronephrosis may be present. Suspected renal stones within the renal collecting system are pre sent. There is a posterior in the superior renal cyst on the left. Couple of small cysts or on the ri ght kidney cortex midportion posteriorly. Aorta: Vascular calcification is within the aorta. Inferior vena cava: Normal. CT PELVIS: Loops of bowel within the abdomen and pelvis are normal. Diverticular changes are within the sigm oid colon. There are loops of bowel lacking oral contrast limiting their evaluation. Appendix: Not identified Urinary bladder: Normal. Genitourinary structures: Prostate appears minimally prominent. There may be some asymmetric thickeni ng of the rectal anal junction on the right. Series 5 image 207 Osseous structures: No suspicious lytic or sclerotic lesions. Right hip repair is evident. Facet dege nerative changes are present. There is a lytic lesion within the L3 vertebral level. Multiple additio nal vertebral body lytic lesions are evident. IMPRESSIONS: 1. Extensive increasing bilateral pulmonary nodules in size and number throughout the bilateral lung rojas. 2. Multiple lytic lesions within vertebral bodies. The largest most destructive appears to be at L3 a t this time. 3. Hepatic cysts. There are additional hypodensities which are not simple cysts and could be metastat ic lesions. There is a ring-enhancing lesion suspicious for metastatic lesion in the posterior right lobe liver. 4. Left renal mass essentially stable in size from prior study.
== END | disposition home or self-care (01) ==
LOC: RADNMMAIN 09:45
PROVIDERS: ATTEND Internal Medicine Hematology & Oncology
DX: C79.51 Secondary malignant neoplasm of bone (principal); C64.2 Malignant neoplasm of left kidney, except renal pelvis; R91.8 Other nonspecific abnormal finding of lung field; K76.89 Other specified diseases of liver; N28.89 Other specified disorders of kidney and ureter; N13.30 Unspecified hydronephrosis
CPT/HCPCS: 82565; 84520; 71260; 74177; 36415; 78306; A9503; Q9967

== ENCOUNTER → 2017-09-04 | Outpatient (CLI) | payer MEDICARE, BC ==
[2017-09-04 10:22] LABS: Blood Urea Nitrogen 31 mg/dL (9-20)
--- NOTE | 2017-09-04 12:19 | CT ---
EXAMINATION TYPE: CT ChestAbdPelvis w con DATE OF EXAM: 09/04/2017 COMPARISON: 06/26/2017 HISTORY: Follow up to neoplasm of Lt kidney CT DLP: 2221 mGycm CONTRAST: CT scan of the chest, abdomen and pelvis is performed with Oral Contrast and with IV Contrast, patien t injected with 100 mL of Omnipaque 300. CT Chest: LUNGS: Innumerable pulmonary nodules persist although have improved with regards to size in the inter luc[place]. No interval increase in size or number is appreciated with certainty. The largest nodule previou sly left upper lobe measured 1 cm versus 5 mm currently. The largest nodule right upper lobe previous ly measured 1 cm and currently measures 6 mm. Right lower lobe nodule previously measured 1 cm and cu rrently measures 6 mm. No evidence of pleural effusion. No airspace consolidation. MEDIASTINUM: Thoracic aorta is of normal caliber. The heart is not enlarged. No evidence for media stinal mass. Subcentimeter mediastinal lymph nodes are seen without lymph node identified greater aust[place] n 1 cm at this time. HILAR STRUCTURES: Left hilar adenopathy is improved at 8 mm versus 12 mm previously. Right tracheobro nchial adenopathy is markedly improved and measures 9 mm versus 2.4 cm previously. OTHER: No significant abnormality. CONTRAST CT ABDOMEN AND PELVIS FINDINGS: LIVER/GB: No calcified gallstones. Enhancing lesion posterior segment right hepatic lobe previously measured 13 mm versus 6 mm previously. Additional hypoattenuating lesions remain essentially stable. No new hepatic lesions are seen with certainty at this time. Biliary tree is of normal caliber. PANCREAS: No inflammation. No distinct mass. SPLEEN: No splenic enlargement. No lesion seen. ADRENALS: No nodule. No thickening. KIDNEYS/BLADDER: Exophytic solid left renal mass is again noted and currently measures 7.0 x 7.4 cm v ersus 8.3 x 7.4 cm previously. Peripheral nodular enhancement persists. No additional solid renal les ions are detected. Old: Additional simple cysts are noted bilaterally. Large calculus left renal pelv is measures 2.2 cm in length and is unchanged. Additional renal calculi noted on the left. BOWEL: Normal appendix. Normal bowel caliber. No inflammation. GENITAL ORGANS: No gross abnormality. LYMPH NODES: No greater than 1cm abdominal or pelvic lymph nodes are appreciated. AORTA: No significant abnormality. OSSEOUS STRUCTURES: Stable lytic lesions to be thoracic and lumbar spine. Postoperative changes right hip. OTHER: No significant additional abnormality is seen. IMPRESSION: 1. Innumerable pulmonary nodules are again noted however all visualized nodules are smaller in size. No new nodules are evident at this time. 2. Improving hilar and mediastinal adenopathy. 3. Improving suspicious lesion posterior segment right hepatic lobe. 4. Persistent right renal mass compatible with renal cell carcinoma is slightly smaller in size in th e interval. 5. Stable metastatic disease to the osseous structures.
== END | disposition home or self-care (01) ==
LOC: RADCTMAIN 09:50
PROVIDERS: ATTEND Internal Medicine Hematology & Oncology
DX: C64.2 Malignant neoplasm of left kidney, except renal pelvis (principal); C79.51 Secondary malignant neoplasm of bone; N28.89 Other specified disorders of kidney and ureter; R91.8 Other nonspecific abnormal finding of lung field; R59.0 Localized enlarged lymph nodes
CPT/HCPCS: 82565; 84520; 71260; 74177; 36415; Q9967

== ENCOUNTER → 2017-09-12 | Outpatient (CLI) | payer MEDICARE, BC ==
--- NOTE | 2017-09-12 14:47 | NM ---
EXAMINATION TYPE: NM bone scan whole body DATE OF EXAM: 09/12/2017 COMPARISON: Prior nuclear medicine bone scan June 26, 2017. CT chest abdomen and pelvis September 04, 2017. HISTORY: Malignant neoplasm of left kidney. Delayed whole-body scanning was performed following the injection of 25.2 mCi Tc 99m MDP. Images acq uired 3 hours post injection. FINDINGS: Multiple osseous metastatic lesions show left increased radiotracer uptake on current study versus pr ior study. There are persistent osseous lytic lesions scattered throughout the bones on more recent C T. There is persistent severe left-sided hydronephrosis. No definitive new lesions are seen. IMPRESSION: Less prominent radiotracer uptake in known diffuse osseous lytic metastatic disease. No definitive ne w lesions identified by bone scan. Persistent severe left-sided hydronephrosis noted.
== END | disposition home or self-care (01) ==
LOC: RADNMMAIN 10:22
PROVIDERS: ATTEND Internal Medicine Hematology & Oncology
DX: C79.51 Secondary malignant neoplasm of bone (principal); C64.2 Malignant neoplasm of left kidney, except renal pelvis
CPT/HCPCS: 78306; A9503

== ENCOUNTER 2017-12-25 10:01 | Emergency (ER) | payer MEDICARE, BC ==
[2017-12-25 10:12] VITALS: RESP 18
--- NOTE | 2017-12-25 10:37 | ED ---
General Adult HPI - General Chief complaint: Fall Stated complaint: Fall Time Seen by Provider: 12/25/17 10:27 Source: patient, EMS, RN notes reviewed Mode of arrival: EMS Limitations: no limitations - History of Present Illness Initial comments: Patient is an 82-year-old male presenting to the emergency room today by EMS, with chief complaint of a fall. Patient states that he will to open up his body was stepping back first chair tripping falling backwards landing on his buttocks. He states that he also hit the back was head but did not lose consciousness. He states takes a daily aspirin no other blood thinners. Patient was brought to some pain to the right hip area. He was given pain medication by EMS is feeling well at this time. She declined any further medicine currently. Patient denies any other complaints. Patient denies any recent fever, chills, shortness of breath, chest pain, headaches or visual changes, or any other complaints. - Related Data Home Medications Medication Instructions Recorded Confirmed Aspirin [Adult Low Dose Aspirin EC] 81 mg PO HS 05/03/16 01/24/17 Digoxin [Lanoxin] 125 mcg PO DAILY 05/03/16 01/24/17 Glimepiride [Amaryl] 1 mg PO AC-BRKFST PRN 05/03/16 01/24/17 Metoprolol Tartrate [Lopressor] 25 mg PO BID 05/03/16 01/24/17 sitaGLIPtin PHOS/metFORMIN HCL 1 tab PO BID 05/03/16 01/24/17 [Janumet 50-500 mg Tablet] Calcium Carbonate/Vitamin D3 1 tab PO DAILY 01/24/17 01/24/17 [Calcium 600-Vit D3 400 Caplet] Enalapril [Vasotec] 10 mg PO DAILY 01/24/17 01/24/17 Famotidine [Pepcid] 20 mg PO BID PRN 01/24/17 01/24/17 HYDROcodone/APAP 5-325MG [[place] 1 tab PO BID 01/24/17 01/24/17 5-325] Naproxen Sodium [Aleve] 220 mg PO Q12HR PRN 01/24/17 01/24/17 Prochlorperazine [Compazine] 10 mg PO Q6H PRN 01/24/17 01/24/17 Triamterene-Hctz 75-50Mg [Maxzide 0.5 tab PO DAILY 01/24/17 01/24/17 75-50] Votrient 400 mg PO DAILY 01/24/17 01/24/17 X Geva 2 ml INJ Q30D 01/24/17 01/24/17 fentaNYL 25MCG/HR PATCH [Duragesic 1 patch TRANSDERM Q72H 01/24/17 01/24/17 25MCG/HR] Allergies Allergy/AdvReac Type Severity Reaction Status Date / Time No Known Allergies Allergy Verified 12/25/17 10:13 Review of Systems ROS Statement: Those systems with pertinent positive or pertinent negative responses have been documented in the HPI. ROS Other: All systems not noted in ROS Statement are negative. Past Medical History Past Medical History: Atrial Fibrillation, Cancer, Diabetes Mellitus, Hypertension Additional Past Medical History / Comment(s): Kidney mass - metastatic cancer to the back, hip, lungs, lesion of femur History of Any Multi-Drug Resistant Organisms: None Reported Past Surgical History: Hernia Repair, Orthopedic Surgery Additional Past Surgical History / Comment(s): bronch to remove aspirated foreign object, abdominal hernia, umbilical hernia, fatty tumor removed, repair of tib/fib, Craniotomy X2 for Subdural hematoma. 04/2016 work up for removal of kidney suspious for CA pending biopsy of femur lesion. Past Anesthesia/Blood Transfusion Reactions: No Reported Reaction Past Psychological History: No Psychological Hx Reported Smoking Status: Former smoker Past Alcohol Use History: Rare Past Drug Use History: None Reported - Past Family History Father Family Medical History: No Reported History General Exam - General Exam Comments Initial Comments: General: The patient is awake and alert, in no distress, and does not appear acutely ill. Eye: Pupils are equal, round and reactive to light, extra-ocular movements are intact. No nystagmus. There is normal conjunctiva bilaterally. Ears, nose, mouth and throat: There are moist mucous membranes and no oral lesions. Neck: The neck is supple Cardiovascular: There is a regular rate and rhythm. Respiratory: Lungs are clear to auscultation, respirations are non-labored, breath sounds are equal. No wheezes, stridor, rales, or rhonchi. Musculoskeletal: Patient does have shortening rotation of the right lower extremity. Pedal pulses are equal bilaterally 2+. Sensations intact. Mild tenderness laterally over the right hip. No bony tenderness to the thoracic or lumbar spine. No step-offs deformities. Neurological: A&O x 3. CN II-XII intact, There are no obvious motor or sensory deficits. Coordination appears grossly intact. Speech is normal. Skin: Skin is warm and dry and no rashes or lesions are noted. Psychiatric: Cooperative, appropriate mood & affect, normal judgment. Limitations: no limitations Course Vital Signs 12/25/17 10:03 Temperature 98.3 F Pulse Rate 96 Respiratory 18 Rate Blood Pressure 128/64 O2 Sat by Pulse 95 Oximetry Medical Decision Making - Medical Decision Making Patient reexamined at this time shows no signs of distress. His x-rays have been reviewed and does show a fracture of the right hip. Chest x-ray revealing possible pulmonary nodule. Patient does have a history of kidney cancer with known metastasis. Lesions are demonstrated on the right femur. Patient did have previous surgery for hip fracture at [facility] from Dr. Allan. At this time the results were discussed with the patient and family. They're agreeable for transfer to [facility] for further evaluation and treatment. Case was discussed with emergency physician Dr. Miller who will accept transfer. Patient will be transferred via EMS. Disposition Clinical Impression: Fall, Closed right hip fracture, Kidney cancer, primary, with metastasis from kidney to other site Disposition: OTHER INSTITUTION NOT DEFINED Condition: Good Is patient prescribed a controlled substance at d/c from ED?: No Referrals: Jaden Silva MD [Primary Care Provider] - 1-2 days Time of Disposition: 12:17 - Out of Hospital Transfer - Req. Specs Out of Hospital Transfer - Requested Specifics: Other Emergency Center ([facility])
--- NOTE | 2017-12-25 11:54 | XR ---
EXAMINATION TYPE: XR chest 1V DATE OF EXAM: 12/25/2017 COMPARISON: 03/23/2016 HISTORY: Preoperative clearance. Shortness of breath. TECHNIQUE: Single frontal view of the chest is obtained. FINDINGS: There are multiple new pulmonary nodular densities suspicious for pulmonary nodules as the y're smoothly marginated rather than multifocal infection. The largest is seen within the right upper lobe measuring approximately 3.7 cm qualifying as a pulmonary mass. There are at least 5 on the left and 3 additional on the right. Minimal pulmonary vascular congestion is also seen. Degenerative toure ges of the osseous structures are noted. No pneumothorax or pleural effusion. IMPRESSION: Findings concerning for right apical pulmonary mass and multiple focal bilateral pulmona ry nodules CT could be performed for further evaluation.
--- NOTE | 2017-12-25 11:59 | XR ---
EXAMINATION TYPE: XR femur RT, XR pelvis AP view DATE OF EXAM: 12/25/2017 CLINICAL HISTORY: Right hip pain. TECHNIQUE: Two views of the right femur are obtained. Single view pelvis were also obtained. COMPARISON: 01/24/2017 FINDINGS: There is a proximal right femoral fracture below the greater and lesser trochanter that barrios s been transfixed by a right femoral intramedullary court and cephalomedullary femoral head screws. In comparison to the CT dated 09/04/2017 this fracture was present at that time but appeared well corticat ed. There is no lucency laterally and slight overlap medially of approximately 1.7 cm. Within the proximal right femur there are 2 focal areas of cortical lucency concerning for partial fr actures or stress fractures. Extensive degenerative changes are seen of the right knee. Heterotopic o ssification surrounds the right proximal femur. Atherosclerosis is seen of the vasculature. Moderate degenerative changes are seen of the left femoral acetabular joint. IMPRESSION: 1. Noncomminuted refracture of the right proximal femur inferior to the intertrochanteric region 2. Stable cortical lucency of the right proximal femoral midshaft laterally from the prior of 01/25/20 17 and extensive degenerative changes of the right knee.
--- NOTE | 2017-12-25 12:01 | XR ---
EXAMINATION TYPE: XR lumbar spine 2 or 3V DATE OF EXAM: 12/25/2017 CLINICAL HISTORY: Back pain after fall TECHNIQUE: Frontal and lateral images of the lumbar spine are obtained. COMPARISON: None FINDINGS: There are 5 lumbar type vertebral bodies identified. Since the degenerative changes are s een of the lumbar spine with minimal levoscoliosis of the upper thoracolumbar junction. Possible mg l calcification is seen in the left measuring 2.5 cm. No evidence of acute compression deformity is seen. Atherosclerosis of the abdominal aorta is moderat e. The lumbar spine shows satisfactory alignment without evidence of acute fracture or dislocation. V ertebral body heights and disk space heights are within normal limits. The oblique images appear wi thin normal limits. The overlying soft tissue appears unremarkable. 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 Possible left-sided nephrolithiasis.
[2017-12-25] MEDS ORDERED: MORPHINE SULFATE 4 MG/ML SYRINGE IVP STA (12:10)
[2017-12-25] MEDS ORDERED: MORPHINE SULFATE 4MG/4ML SYRG ONE (12:25)
[2017-12-25 12:29] LABS: Glucose,Whole Blood 97 mg/dL (75-99)
[2017-12-25 13:39] VITALS: BP 110/56; PULSE 90; TEMP 98.6
== END 2017-12-25 13:05 | disposition other institution (70) ==
LOC: EC 10:01
DX: S72.001A Fracture of unspecified part of neck of right femur, initial encounter for closed fracture (principal); I48.91 Unspecified atrial fibrillation; E11.9 Type 2 diabetes mellitus without complications; I10 Essential (primary) hypertension; C64.9 Malignant neoplasm of unspecified kidney, except renal pelvis; C78.00 Secondary malignant neoplasm of unspecified lung; C79.89 Secondary malignant neoplasm of other specified sites; Z87.891 Personal history of nicotine dependence; Z79.82 Long term (current) use of aspirin; Z79.891 Long term (current) use of opiate analgesic; Z79.899 Other long term (current) drug therapy; Z79.84 Long term (current) use of oral hypoglycemic drugs; Z98.890 Other specified postprocedural states; W01.0XXA Fall on same level from slipping, tripping and stumbling without subsequent striking against object, initial encounter; Y92.009 Unspecified place in unspecified non-institutional (private) residence as the place of occurrence of the external cause
CPT/HCPCS: 36415; 71045; 72100; 72170; 99285